=== PATIENT | female | born 1970 | race African-American/Black ===

== ENCOUNTER 2020-04-13 12:31 | Emergency (ER) | payer OTHER ==
[~2020-04-13] VITALS: Ht 162.6 cm; Wt 86.2 kg
--- NOTE | 2020-04-13 12:36 | NUR ---
Patient to ER bed 03 to gown for evaluation. Side rails up.
--- NOTE | 2020-04-13 12:38 | NUR ---
Patient arrived in the ED c/o generalized weakness, nausea, vomiting for the last 4 days. Denied any chest pain or shortness of breath. Denied any fevers or chills. Patient is alert and oriented x4, respirations even and unlabored, speaking in full sentences, and ambulating with a steady gait. VSS, pain level 0/10. Informed of the approximate wait time. Instructed to notify ED staff for any changes in condition or worsening of symptoms. Patient verbalized understanding.
[2020-04-13 13:04] VITALS: BP_SYST 114
--- NOTE | 2020-04-13 13:23 | NUR ---
ER Dr. Naqvi at bedside examining patient.
[2020-04-13] MEDS ORDERED: NACL 0.9% 1,000 ML IV ONE (13:30)
--- NOTE | 2020-04-13 13:50 | NUR ---
ECG done at bedside as ordered by Dr. Naqvi. Patient tolerated the procedure well. ER Physician given copy of EKG for review.
[2020-04-13 13:57] LABS: BASOPHILS % (AUTO) 0.2 % (0.0-2.0); EOSINOPHILS % (AUTO) 0.3 % (0.0-4.0); HEMATOCRIT 32.7 % (36-48); HEMOGLOBIN 10.6 g/dL (12.0-16.0); LYMPHOCYTES # (AUTO) 1.6 K/uL (1.0-5.5); LYMPHOCYTES % (AUTO) 23.9 % (20.5-51.5); MEAN CORPUSCULAR HEMOGLOBIN 25 pg (27-31); MEAN CORPUSCULAR HGB CONC 33 % (32-36); MEAN CORPUSCULAR VOLUME 76 fL (79.0-98.0); MONOCYTES # (AUTO) 0.7 K/uL (0.0-1.0); MONOCYTES % (AUTO) 10.7 % (1.7-9.3); NEUTROPHILS # (AUTO) 4.3 K/uL (1.8-7.7); NEUTROPHILS % (AUTO) 64.9 % (40.0-70.0); PLATELET COUNT (AUTO) 246 K/uL (130-430); RED CELL DISTRIBUTION WIDTH 15.2 % (9.0-15.0); WHITE BLOOD COUNT (AUTO) 6.6 K/uL (4.8-10.8)
[2020-04-13 14:10] LABS: CREATININE 2.49 mg/dL (0.55-1.30); POTASSIUM 4.1 mmol/L (3.5-5.1)
[2020-04-13 14:17] LABS: ALBUMIN 2.4 g/dL (3.4-4.8); TOTAL BILIRUBIN 0.1 mg/dL (0.0-1.0)
[2020-04-13 15:19] VITALS: BP_SYST 114
== END 2020-04-13 15:19 | disposition home or self-care (01) ==
LOC: SED 12:31
DX: K52.9 Noninfective gastroenteritis and colitis, unspecified (principal)
CPT/HCPCS: 36415; 71045; 80053; 82550; 83880; 84484; 85025; 93005; 96360; 99285; J7030